=== PATIENT | male | born 1995 | race Caucasian/White ===

== ENCOUNTER 2017-04-20 21:04 | Emergency (ER) | payer BC ==
[~2017-04-20] VITALS: Ht 180.3 cm; Wt 88.5 kg
[2017-04-20 21:11] VITALS: BP 154/71
[2017-04-20] MEDS ORDERED: DELTASONE20 M1 PO (22:18)
[2017-04-20] MEDS ORDERED: VENTOLIN 02.5 MG/3 M INH (22:18)
== END 2017-04-20 22:21 | disposition home or self-care (01) ==
LOC: ED 21:04
DX: T78.49XA Other allergy, initial encounter (principal); X58.XXXA Exposure to other specified factors, initial encounter

== ENCOUNTER → 2017-11-21 | Outpatient (CLI) | payer BC ==
[~2017-11-21] MED LIST: DELTASONE20 M1 PO; VENTOLIN 02.5 MG/3 M INH
== END | disposition home or self-care (01) ==
LOC: RAD 14:09
DX: J18.9 Pneumonia, unspecified organism (principal)